=== PATIENT | female | born 1970 ===

== ENCOUNTER 2016-11-05 18:19 | Emergency (ER) | payer BC ==
[2016-11-05 18:36] VITALS: PULSE 78
--- NOTE | 2016-11-05 18:53 | ED PDOC ---
"HPI: General Adult Time Seen by Provider: 11/05/16 18:41 Chief Complaint (Nursing): Abnormal Skin Integrity Chief Complaint (Provider): Facial pain and swelling History Per: Patient History/Exam Limitations: no limitations Onset/Duration Of Symptoms: Days (x2 days) Current Symptoms Are (Timing): Still Present Additional Complaint(s): 46 y/o female presents to the emergency department with a complaint of facial pain and swelling x2 days. Reports visiting her primary care doctor who referred her to a specialist but appointment was too far ahead and needed assistance now. Denies any further medical complaints. No fever or chills. no dental pain or trauma. Past Medical History Reviewed: Historical Data, Nursing Documentation, Vital Signs Vital Signs: Last Vital Signs Temp 98.8 F 11/05/16 23:59 Pulse 78 11/05/16 23:59 Resp 18 11/05/16 23:59 BP 101/59 L 11/05/16 23:59 Pulse Ox 100 11/05/16 23:59 - Medical History PMH: No Chronic Diseases - Surgical History Surgical History: No Surg Hx - Family History Family History: States: Unknown Family Hx - Home Medications Home Medications: Ambulatory Orders Medication Instructions Recorded Amoxicillin/Clavulanate [Augmentin 1 tab PO BID #14 tab 11/05/16 875 MG-125 MG] Methylprednisolone [Medrol Dose 4 mg PO DAILY #21 mg 11/05/16 Pack (21 tabs)] traMADol [Ultram] 50 mg PO TID #10 tab 11/05/16 - Allergies Allergies/Adverse Reactions: Allergies Allergy/AdvReac Type Severity Reaction Status Date / Time No Known Allergies Allergy Verified 11/05/16 18:31 Review of Systems ROS Statement: Except As Marked, All Systems Reviewed And Found Negative Constitutional: Negative for: Fever, Chills ENT: Positive for: Other (Right-sided facial pain with swelling) Physical Exam - Reviewed Nursing Documentation Reviewed: Yes Vital Signs Reviewed: Yes - Physical Exam Appears: Positive for: Non-toxic, No Acute Distress Head Exam: Positive for: ATRAUMATIC, NORMAL INSPECTION, NORMOCEPHALIC Skin: Positive for: Normal Color, Warm, Dry ENT: Positive for: Other (Right-sided mandibular tenderness with edema. Site firm to palpation. ). Negative for: Normal ENT Inspection Neck: Positive for: Normal, Supple Neurologic/Psych: Positive for: Alert, Oriented (x3) - Laboratory Results Result Diagrams: 11/05/16 20:10 11/05/16 20:10 - ECG O2 Sat by Pulse Oximetry: 98 (RA) Pulse Ox Interpretation: Normal Medical Decision Making Medical Decision Making: Time: 18:51 Initial impression: Right-sided facial swelling Initial plan: --Maxillofacial w/ contrast CT --CMP --CBC w/ diff --Blood Culture --Reevaluation Time: 21:25 --Cleocin 600 mg IVPB --Methylprednisolone [address] Maxillofacial With Intravenous Contrast EXAM DATE/TIME: 11/05/2016 6:51 PM CLINICAL HISTORY: 46 years old, female; Signs and symptoms; Other: Mandibular edema and ecchymosis ; Additional info: Right sided mandibular edema and ecchymosis. Sent phy. Doc. TECHNIQUE: Axial computed tomography images of the face with intravenous contrast. All CT scans at this facility use one or more dose reduction techniques, viz.: automated exposure control; ma/ kV adjustment per patient size (including targeted exams where dose is matched to indication; i.e. head); or iterative reconstruction technique. Coronal and sagittal reformatted images were created and reviewed. CONTRAST: 80 mL of [id number] administered intravenously. COMPARISON: No relevant prior studies available. FINDINGS: Dental bridge work produces artifact. There is stranding in the subcutaneous fat of the right smandibular region consistent with infectious/inflammatory process/celuli Multiple right submandibular lymph nodes are present. Along the inferior posterior aspect of the right mandibular body, within the inflammation, is a rounded 1.5 cm fluid collection with enhancing rim (axial image 45, sagittal image 34 through 36) consistent with abscess. The osseous structures appear normal although please note that portions are suboptimally visualized due to artifact. VONDA, MARIA FERNANDA | Final Radiology Report CONFIDENTIALITY STATEMENT This report is intended only for use by the referring physician, and only in accordance with law. If you received this in error, call [phone]. Page 2 of 2 The airway remains patent. Normal epiglottis is identified. Mild mucosal thickening right ethmoid sinus. IMPRESSION: Right submandibular cellulitis with multiple lymph nodes. Abscess formation as described above. WBC: 8.2 Temp: 98.8 Dr. Lord consulted, [facility] [place] [place]: Advised Pt to follow up outpt, stable for discharge. send home on Augmentin Scribe Attestation: Documented by Malinda Faith, acting as a scribe for Zena Russell PA-C Provider Scribe Attestation: All medical record entries made by the Scribe were at my direction and personally dictated by me. I have reviewed the chart and agree that the record accurately reflects my personal performance of the history, physical exam, medical decision making, and the department course for this patient. I have also personally directed, reviewed, and agree with the discharge instructions and disposition. Disposition - Clinical Impression Clinical Impression: Abscess or cellulitis of submandibular region - Patient ED Disposition Is Patient to be Admitted: No - Disposition Disposition: Routine/Home Disposition Time: 20:18 Condition: STABLE Additional Instructions: [facility] Address: [address] [place] [address] Prescriptions: Amoxicillin/Clavulanate [Augmentin 875 MG-125 MG] 1 tab PO BID #14 tab Methylprednisolone [Medrol Dose Pack (21 tabs)] 4 mg PO DAILY #21 mg traMADol [Ultram] 50 mg PO TID #10 tab Instructions: Cellulitis (ED), Abscess (ED) Forms: [email or web address] (Romansh) - POA Present On Arrival: None"
[2016-11-05 20:25] LABS: BASO % 0.3 % (0.0-2.0); EOS % 0.5 % (0.0-4.0); HEMATOCRIT 34.5 % (34.0-47.0); LYMPH # 1.2 K/uL (1.0-4.3); LYMPH % 15.1 % (20.0-40.0); MEAN CELL VOLUME 67.2 fl (81.0-99.0); MEAN CORPUSCULAR HEMOGLOBIN 20.9 pg (27.0-31.0); MEAN CORPUSCULAR HGB CONC 31.2 g/dL (33.0-37.0); MEAN PLATELET VOLUME 9.4 fl (7.2-11.7); MONO # 0.6 K/uL (0.0-0.8); MONO % 6.9 % (0.0-10.0); NEUT # 6.3 K/uL (1.8-7.0); NEUT % 77.2 % (50.0-75.0); RED CELL DISTRIBUTION WIDTH 18.3 % (11.5-14.5); WHITE BLOOD COUNT 8.2 K/uL (4.8-10.8)
[2016-11-05 20:40] LABS: ALB/GLOB RATIO 1.2 (1.0-2.1); ALKALINE PHOSPHATASE 83 U/L (38-126); ALT/SGPT 32 U/L (9-52); AST/SGOT 16 U/L (14-36); BILIRUBIN,TOTAL 0.4 mg/dl (0.2-1.3); BLOOD UREA NITROGEN 11 mg/dl (7-17); CALCIUM 8.9 mg/dL (8.4-10.2); CARBON DIOXIDE 23 mmol/L (22-30); CHLORIDE 105 mmol/L (98-107); GFR AFRICAN-AMERICAN > 60; GLUCOSE,RANDOM 91 mg/dL (65-105); SODIUM 140 mmol/l (132-148); TOTAL PROTEIN 7.7 G/DL (6.3-8.2)
[2016-11-05 20:57] LABS: POTASSIUM 3.4 MMOL/L (3.6-5.0)
[2016-11-05] MEDS ORDERED: Clindamycin 600 MG in Sodium Chloride 0.9% 100 ML IVPB STA (21:28)
[2016-11-05] MEDS ORDERED: Iohexol 300 100 ML IJ ONE (21:35)
[2016-11-05] MEDS ORDERED: Sodium Chloride 0.9% 50 ML IV ONE (21:35)
--- NOTE | 2016-11-05 22:31 | CT ---
EXAM: CT Maxillofacial With Intravenous Contrast EXAM DATE/TIME: 11/05/2016 6:51 PM CLINICAL HISTORY: 46 years old, female; Signs and symptoms; Other: Mandibular edema and ecchymosis; Additional info: Right sided mandibular edema and ecchymosis. Sent phy. Doc. TECHNIQUE: Axial computed tomography images of the face with intravenous contrast. All CT scans at this facility use one or more dose reduction techniques, viz.: automated exposure control; ma/kV adjustment per patient size (including targeted exams where dose is matched to indication; i.e. head); or iterative reconstruction technique. Coronal and sagittal reformatted images were created and reviewed. CONTRAST: 80 mL of [id number] administered intravenously. COMPARISON: No relevant prior studies available. FINDINGS: Dental bridge work produces artifact. There is stranding in the subcutaneous fat of the right smandibular region consistent with infectious/inflammatory process/celulitis. Multiple right submandibular lymph nodes are present. Along the inferior posterior aspect of the right mandibular body, within the inflammation, is a rounded 1.5 cm fluid collection with enhancing rim (axial image 45, sagittal image 34 through 36) consistent with abscess. The osseous structures appear normal although please note that portions are suboptimally visualized due to artifact. The airway remains patent. Normal epiglottis is identified. Mild mucosal thickening right ethmoid sinus. IMPRESSION: Right submandibular cellulitis with multiple lymph nodes. Abscess formation as described above.
[2016-11-05] MEDS ORDERED: Potassium Chloride 20 mEq ER Tab PO ONE ×2 (22:48→23:04)
[2016-11-06] VITALS: BP 101/59; RESP 18; TEMP 98.8
[2016-11-06 16:17] VITALS: O2SAT 98
== END 2016-11-06 | disposition home or self-care (01) ==
LOC: H.ER 18:19
DX: K12.2 Cellulitis and abscess of mouth (principal)
CPT/HCPCS: 70488; 80053; 81025; 85025; 87040; 96374; 99282; J2930; Q9967

== ENCOUNTER 2016-11-09 12:37 | Emergency (ER) | payer BC ==
[2016-11-09 12:52] VITALS: TEMP 98.8; O2SAT 100
[2016-11-09] MEDS ORDERED: Piperacillin/Tazobact 4.5 GM in Sodium Chloride 0.9% 100 ML IVPB STA (14:23)
[2016-11-09] MEDS ORDERED: Dexamethasone 8 MG in Dextrose 5% In Water 50 ML IV ONE (14:23)
[2016-11-09] MEDS ORDERED: Dexamethasone 4 mg/1 ml ONE (14:37)
[2016-11-09 15:00] LABS: BASO # 0.1 K/uL (0.0-0.2); BASO % 0.5 % (0.0-2.0); EOS # 0.1 K/uL (0.0-0.7); EOS % 0.5 % (0.0-4.0); HEMATOCRIT 33.9 % (34.0-47.0); LYMPH # 1.4 K/uL (1.0-4.3); LYMPH % 12.8 % (20.0-40.0); MEAN CELL VOLUME 66.9 fl (81.0-99.0); MEAN CORPUSCULAR HEMOGLOBIN 20.9 pg (27.0-31.0); MEAN CORPUSCULAR HGB CONC 31.2 g/dL (33.0-37.0); MEAN PLATELET VOLUME 8.6 fl (7.2-11.7); MONO # 0.8 K/uL (0.0-0.8); MONO % 7.4 % (0.0-10.0); NEUT # 8.5 K/uL (1.8-7.0); NEUT % 78.8 % (50.0-75.0); RED CELL DISTRIBUTION WIDTH 17.9 % (11.5-14.5); WHITE BLOOD COUNT 10.7 K/uL (4.8-10.8)
[2016-11-09 15:15] LABS: BLOOD UREA NITROGEN 10 mg/dl (7-17); CALCIUM 8.8 mg/dL (8.4-10.2); CARBON DIOXIDE 24 mmol/L (22-30); CHLORIDE 101 mmol/L (98-107); GFR AFRICAN-AMERICAN > 60; GLUCOSE,RANDOM 111 mg/dL (65-105); POTASSIUM 3.7 MMOL/L (3.6-5.0); SODIUM 140 mmol/l (132-148)
[2016-11-09] MEDS ORDERED: HYDROmorphone 0.5 mg/0.5 ml ISec IVP STA (15:21)
[2016-11-09] MEDS ORDERED: HYDROmorphone 0.5 mg/0.5 ml ISec ONE (15:24)
--- NOTE | 2016-11-09 15:47 | ED PDOC ---
HPI: General Adult Time Seen by Provider: 11/09/16 14:09 Chief Complaint (Nursing): Abnormal Skin Integrity Chief Complaint (Provider): Facial pain and swelling History Per: Patient History/Exam Limitations: no limitations Additional Complaint(s): Patient is a 46 y/o female with no significant medical history presenting to the emergency department for right facial pain and swelling. Notes that she was seen in the ED in late October and diagnosed with facial cellulitis and a dental abscess and given a prescription for Augmentin and Tramadol. Denies following up at [facility]. Also reports that she did not take the antibiotics on the last day due to nausea. Denies shortness of breath, changes in her voice, recent dental work, fever, drooling, inability to swallow,pain under her tongue, or other complaints. PCP: none provided. Past Medical History Reviewed: Historical Data, Nursing Documentation, Vital Signs Vital Signs: Last Vital Signs Temp 98.8 F 11/09/16 12:47 Pulse 70 11/09/16 17:21 Resp 18 11/09/16 17:21 BP 126/60 11/09/16 17:21 Pulse Ox 100 11/09/16 17:21 - Medical History PMH: No Chronic Diseases - Surgical History Surgical History: No Surg Hx - Family History Family History: States: Unknown Family Hx - Social History Current smoker - smoking cessation education provided: No Ex-Smoker (has not smoked in the last 12 months): No Alcohol: None - Immunization History Hx Tetanus Toxoid Vaccination: No Hx Influenza Vaccination: No Hx Pneumococcal Vaccination: No - Home Medications Home Medications: Ambulatory Orders Medication Instructions Recorded Amoxicillin/Clavulanate [Augmentin 1 tab PO BID #14 tab 11/05/16 875 MG-125 MG] Methylprednisolone [Medrol Dose 4 mg PO DAILY #21 mg 11/05/16 Pack (21 tabs)] traMADol [Ultram] 50 mg PO TID #10 tab 11/05/16 Ondansetron [Zofran] 4 mg PO Q6H PRN #10 tab 11/09/16 traMADol [Ultram] 50 mg PO TID PRN #12 tab 11/09/16 - Allergies Allergies/Adverse Reactions: Allergies Allergy/AdvReac Type Severity Reaction Status Date / Time No Known Allergies Allergy Verified 11/09/16 12:47 Review of Systems ROS Statement: Except As Marked, All Systems Reviewed And Found Negative Constitutional: Negative for: Fever ENT: Positive for: Other (right facial pain and swelling without drooling, inability to swallow, recent dental work, voice changes, or pain under the tongue) Respiratory: Negative for: Shortness of Breath Physical Exam - Reviewed Nursing Documentation Reviewed: Yes Vital Signs Reviewed: Yes - Physical Exam Appears: Positive for: Well, Non-toxic, No Acute Distress Head Exam: Positive for: ATRAUMATIC, NORMAL INSPECTION, NORMOCEPHALIC Skin: Positive for: Normal Color, Warm, Dry Eye Exam: Positive for: Normal appearance, EOMI, PERRL ENT: Positive for: Other (Facial tenderness and swelling in the right lower face and the submandibular area. No tenderness or edema under the tongue or submental area. ) Neck: Positive for: Normal, Painless ROM, Supple Cardiovascular/Chest: Positive for: Regular Rate, Rhythm. Negative for: Murmur Respiratory: Positive for: Normal Breath Sounds. Negative for: Accessory Muscle Use, Respiratory Distress Gastrointestinal/Abdominal: Positive for: Normal Exam, Soft. Negative for: Tenderness Extremity: Positive for: Normal ROM. Negative for: Pedal Edema Neurologic/Psych: Positive for: Alert, Oriented (x3) - Laboratory Results Result Diagrams: 11/09/16 14:40 11/09/16 14:40 - ECG O2 Sat by Pulse Oximetry: 100 (RA) Pulse Ox Interpretation: Normal Medical Decision Making Medical Decision Making: Time: 14:23 Initial impression: Facial pain and swelling Initial plan: Labs Decadron 8 mg injection Dilaudid 0.5 mg IVP Zofran 4 mg IV Zosyn 4.5 gm Reevaluation- 415pm- feels better and wants to go home. Has ROM of jaw and no drooling, normal swallowing and normal speech. Discussed w ANASTASIYA at [facility], no availability this week for appointment. They recommend patient go to ER if needed. Discussed w Dr Octavio Madsen [facility] office [phone], credit products officer stated can be seen tomorrow at 1030am for emergency appointment. I discussed all findings and need for followup w AANSTASIYA in azerbaijani via [employer] business process expert. She understands failure to followup again, or failure to take antibiotics may result in worsening infection and significant complications. Rx zofran for better augmentin tolerance and Rx refill tramadol for pain. Scribe Attestation: Documented by Pricila Gomez, acting as a scribe for Nasir Mancera DO. Provider Scribe Attestation: All medical record entries made by the Scribe were at my direction and personally dictated by me. I have reviewed the chart and agree that the record accurately reflects my personal performance of the history, physical exam, medical decision making, and the department course for this patient. I have also personally directed, reviewed, and agree with the discharge instructions and disposition. Disposition - Clinical Impression Clinical Impression: Facial cellulitis, Abscess or cellulitis of submandibular region Counseled Patient/Family Regarding: Studies Performed, Diagnosis, Need For Followup, Rx Given - Disposition Referrals: Madhuri Madsen DMD [Staff Provider] - Disposition: Routine/Home Disposition Time: 16:39 Condition: FAIR Additional Instructions: See [facility] surgeon for definitive management, you may need surgery for this condition. TAKE ANTIBIOTICS DIRECTED. RETURN TO ER FOR ANY DROOLING, DIFFICULTY OPENING MOUTH, DIFFICULTY SWALLOWING, TONGUE PAIN, OR ANY CONCERN. IF UNABLE TO CALL FOR APPOINTMENT, WALK INTO DR MADSEN'S OFFICE TOMORROW AT 10 :30AM FOR EMERGENCY APPOINTMENT. BRING PAPERWORK FROM ER. Continue augmentin 2x daily as prior prescribed. Espanol: Consulte al cirujano de [facility] para diamante administracin definitiva, es posible que necesite ciruga para esta condicin. SAM ANTIBITICOS SEGN LO DIRIGIDO. DEVUELVA A ER PARA CUALQUIER DROOLING, DIFICULTAD QUE ANGELY LA BOCA, DIFICULTAD DE INGESTIN, DOLOR DE LA LENGUA, O CUALQUIER PREOCUPACIN. SI NO SE PUEDE LLAMAR PARA LA DORON, CAMINE A LA OFICINA DEL DR CALE ALMENDAREZ A LAS 10:30 AM PARA DIAMANTE DORON DE EMERGENCIA. TRAER TRABAJOS DE [place] DE ER. To [facility]: Received Zosyn 4.5gm in ED 11/09 and Clinda 600mg IV 11/05 Rx augmentin BID and medrol dose shaun. WBC 10.[address] w contrast 11/05: CLINICAL HISTORY: 46 years old, female; Signs and symptoms; Other: Mandibular edema and ecchymosis; Additional info: Right sided mandibular edema and ecchymosis. Sent phy. Doc. TECHNIQUE: Axial computed tomography images of the face with intravenous contrast. All CT scans at this facility use one or more dose reduction techniques, viz.: automated exposure control; ma/kV adjustment per patient size (including targeted exams where dose is matched to indication; i.e. head); or iterative reconstruction technique. Coronal and sagittal reformatted images were created and reviewed. CONTRAST: 80 mL of [id number] administered intravenously. COMPARISON: No relevant prior studies available. FINDINGS: Dental bridge work produces artifact. There is stranding in the subcutaneous fat of the right smandibular region consistent with infectious/inflammatory process/celulitis. Multiple right submandibular lymph nodes are present. Along the inferior posterior aspect of the right mandibular body, within the inflammation, is a rounded 1.5 cm fluid collection with enhancing rim (axial image 45, sagittal image 34 through 36) consistent with abscess. The osseous structures appear normal although please note that portions are suboptimally visualized due to artifact. The airway remains patent. Normal epiglottis is identified. Mild mucosal thickening right ethmoid sinus. IMPRESSION: Right submandibular cellulitis with multiple lymph nodes. Abscess formation as described above. Dictated By: Carla Liu MD Dictated Date/Time: 11/05/162229 Signed By: Carla Liu MD Date Signed: [id number] Transcribed By: ARCHANA Transcribe Date/Time : 11/05/162229 Prescriptions: Ondansetron [Zofran] 4 mg PO Q6H PRN #10 tab PRN Reason: Nausea/Vomiting traMADol [Ultram] 50 mg PO TID PRN #12 tab PRN Reason: Pain, Moderate (4-7) Instructions: Dental Abscess (ED) Forms: [employer] (Slovak)
[2016-11-09 17:22] VITALS: BP 126/60; PULSE 70; RESP 18
== END 2016-11-09 17:18 | disposition home or self-care (01) ==
LOC: H.ER 12:37
DX: K12.2 Cellulitis and abscess of mouth (principal)
CPT/HCPCS: 80048; 81025; 85025; 96374; 96375; 99282; J1100; J1170; J2405; J2543